=== PATIENT | male | born 1950 | race Caucasian/White ===

== ENCOUNTER 2017-02-07 15:56 | Emergency (ER) | payer OTHER, MEDICAID ==
--- NOTE | 2017-02-07 15:59 | EDPHY ---
H & P Time Seen by Provider: 02/07/17 15:58 HPI/ROS: CHIEF COMPLAINT: Tremulous, generalized weakness, history of possible alcohol consumption. HISTORY OF PRESENT ILLNESS: The patient is brought to the emergency department by his children with a several hour history of tremulous movement, generalized weakness and bizarre behavior. Children reports me they are suspicious about occult alcohol ingestion. Children visiting from out of state. The patient denies any complaints of acute pain. He denies fever. He complains of generalized malaise. The patient does report alcohol consumption but is unable to quantify how much. The patient does have a history of hypertension. He has no history of recent trauma. The patient denies focal numbness or weakness. He has no complaints of headache. REVIEW OF SYSTEMS: A comprehensive 10 point review of systems is otherwise negative aside from elements mentioned in the history of present illness. Source: Patient Exam Limitations: No limitations - Medical/Surgical History PMH: Past medical history: Hypertension - Family History Significant Family History: No pertinent family hx - Physical Exam Exam: General Appearance: Alert, appears intoxicated, no acute distress, mildly tremulous Eyes: Pupils equal and round no pallor or injection ENT, Mouth: Mucous membranes moist Respiratory: There are no retractions, lungs are clear to auscultation Cardiovascular: Regular rate and rhythm Gastrointestinal: Abdomen is soft and nontender, no masses, bowel sounds normal Neurological: A&O, normal motor function, normal sensory exam, normal cranial nerves Skin: Warm and dry, no rashes Musculoskeletal: Neck is supple nontender Extremities: symmetrical, full range of motion Constitutional: Initial Vital Signs Temperature (C) 37.3 C 02/07/17 16:04 Heart Rate 100 02/07/17 16:04 Respiratory Rate 24 H 02/07/17 16:04 Blood Pressure 162/94 H 02/07/17 16:04 O2 Sat (%) 99 02/07/17 16:04 O2 Delivery Mode Room Air Allergies/Adverse Reactions: No Known Allergies Allergy (Unverified 02/07/17 16:03) Home Medications: Medication Instructions Recorded 2 Htn Meds 02/07/17 Gabapentin 02/07/17 Medical Decision Making - Diagnostics EKG Interpretation: EKG: Complete interpretation has been separately recorded in the [employer] archive. Summary impression: Sinus rhythm, rate 85 ED Course/Re-evaluation: The patient presents to the ED with shakiness. The patient reports that he had been drinking quite a bit of water earlier today. The patient may have had some symptoms of mild alcohol withdrawal. The patient arrived and was noted to be hemodynamically stable. The patient's EKG demonstrates no evidence of an arrhythmia. The patient did have mild QT prolongation. The patient was noted to have a low sodium of 124. I was able to review his medications from [place] which include metoprolol, lisinopril, hydrochlorothiazide and lovastatin. The patient received 1 L of normal saline in the ED. The patient was then water restricted. The patient underwent serial examinations by myself over a 2 hour period. Serum sodium was recheck to be i-STAT following 1 L of normal saline and found to be 131. The patient states that his symptoms are feeling much better. I do believe the patient was having symptoms of alcohol withdrawal and potentially transient symptomatic hyponatremia. At this point time the patient is comfortable going home. He understands to limit his free water intake. The patient will return to the ED for any chest pain, shortness of breath, difficulty breathing or other concerns. Differential Diagnosis: Differential diagnosis considered includes hyponatremia, hypokalemia, dehydration, alcohol withdrawal, metabolic abnormality - Data Points Laboratory Results: Laboratory Results 02/07/17 16:05 02/07/17 16:05 02/07/17 02/07/17 02/07/17 17:20 16:05 16:05 WBC RBC Hgb Hct MCV MCH MCHC RDW Plt Count MPV Neut % (Auto) Lymph % (Auto) Elbert % (Auto) Eos % (Auto) Baso % (Auto) Nucleat RBC Rel Count Absolute Neuts (auto) Absolute Lymphs (auto) Absolute Monos (auto) Absolute Eos (auto) Absolute Basos (auto) Absolute Nucleated RBC Immature Gran % Immature Gran # Sodium 124 mEq/L L mEq/L (134-144) Potassium 3.5 mEq/L mEq/L (3.5-5.2) Chloride 90 mEq/L L mEq/L (97-110) Carbon Dioxide 17 mEq/l L mEq/l (22-31) Anion Gap 17 mEq/L H mEq/L (8-16) BUN 8 mg/dL mg/dL (7-23) Creatinine 0.7 mg/dL mg/dL (0.7-1.3) Estimated GFR > 60 Glucose 95 mg/dL mg/dL (70-100) Serum Osmolality 273 mosmo/kg L mosmo/kg (280-297) Calcium 9.9 mg/dL mg/dL (8.5-10.4) Urine Color YELLOW Urine Appearance CLEAR Urine pH 7.0 (5.0-7.5) Ur Specific [place] 1.004 (1.002-1.030) Urine Protein NEGATIVE (NEGATIVE) Urine Ketones TRACE H (NEGATIVE) Urine Blood NEGATIVE (NEGATIVE) Urine Nitrate NEGATIVE (NEGATIVE) Urine Bilirubin NEGATIVE (NEGATIVE) Urine Urobilinogen NEGATIVE EU EU (0.2-1.0) Ur Leukocyte Esterase NEGATIVE (NEGATIVE) Urine RBC 1-3 /hpf /hpf (0-3) Urine WBC 1-3 /hpf /hpf (0-3) Ur Epithelial Cells NONE SEEN /lpf /lpf (NONE-1+) Urine Osmolality 193 mosmo/kg L mosmo/kg (300-900) Urine Glucose NEGATIVE (NEGATIVE) Ethyl Alcohol 29 mg/dL H mg/dL (0-10) 02/07/17 16:05 WBC 5.72 10^3/uL 10^3/uL (3.80-9.50) RBC 4.18 10^6/uL L 10^6/uL (4.40-6.38) Hgb 14.7 g/dL g/dL (13.7-17.5) Hct 39.4 % L % (40.0-51.0) MCV 94.3 fL fL (81.5-99.8) MCH 35.2 pg H pg (27.9-34.1) MCHC 37.3 g/dL H g/dL (32.4-36.7) RDW 12.0 % % (11.5-15.2) Plt Count 316 10^3/uL 10^3/uL (150-400) MPV 9.4 fL fL (8.7-11.7) Neut % (Auto) 57.6 % % (39.3-74.2) Lymph % (Auto) 32.9 % % (15.0-45.0) Elbert % (Auto) 8.2 % % (4.5-13.0) Eos % (Auto) 0.2 % L % (0.6-7.6) Baso % (Auto) 0.9 % % (0.3-1.7) Nucleat RBC Rel Count 0.0 % % (0.0-0.2) Absolute Neuts (auto) 3.30 10^3/uL 10^3/uL (1.70-6.50) Absolute Lymphs (auto) 1.88 10^3/uL 10^3/uL (1.00-3.00) Absolute Monos (auto) 0.47 10^3/uL 10^3/uL (0.30-0.80) Absolute Eos (auto) 0.01 10^3/uL L 10^3/uL (0.03-0.40) Absolute Basos (auto) 0.05 10^3/uL 10^3/uL (0.02-0.10) Absolute Nucleated RBC 0.00 10^3/uL 10^3/uL (0-0.01) Immature Gran % 0.2 % % (0.0-1.1) Immature Gran # 0.01 10^3/uL 10^3/uL (0.00-0.10) Sodium Potassium Chloride Carbon Dioxide Anion Gap BUN Creatinine Estimated GFR Glucose Serum Osmolality Calcium Urine Color Urine Appearance Urine pH Ur Specific [place] Urine Protein Urine Ketones Urine Blood Urine Nitrate Urine Bilirubin Urine Urobilinogen Ur Leukocyte Esterase Urine RBC Urine WBC Ur Epithelial Cells Urine Osmolality Urine Glucose Ethyl Alcohol Medications Given: Discontinued Medications Sodium Chloride (Ns) 1,000 mls @ 0 mls/hr IV EDNOW ONE; Wide Open PRN Reason: Protocol Stop: 02/07/17 16:05 Last Admin: 02/07/17 16:09 Dose: 1,000 mls Lorazepam (Ativan Injection) 1 mg IVP EDNOW ONE Stop: 02/07/17 16:21 Last Admin: 02/07/17 16:25 Dose: 1 mg Departure - Departure Disposition: Home, Routine, Self-Care Clinical Impression: Hyponatremia Condition: Good Instructions: Hyponatremia (ED) Additional Instructions: 1. Please be careful about consuming excess water as this can significantly affect your electrolytes. 2. Please follow up with your primary care provider as needed.
[2017-02-07] MEDS ORDERED: NS 1,000 ML IV ONE (16:04)
--- NOTE | 2017-02-07 16:17 | CPEKG ---
Heart Rate: 85 RR Interval: 706 P-R Interval: 204 QRSD Interval: 104 QT Interval: 424 QTC Interval: 505 P [place]: -7 QRS [place]: -20 T Wave [place]: 47 EKG Severity - ABNORMAL ECG - EKG Impression: SINUS RHYTHM EKG Impression: BORDERLINE LEFT AXIS DEVIATION EKG Impression: CONSIDER ANTEROSEPTAL INFARCT EKG Impression: PROLONGED QT INTERVAL Electronically Signed By: [place] 07-Feb-2017 16:18:46
[2017-02-07] MEDS ORDERED: LORazepam 2 MG/ML INJ IVP ONE (16:20)
[2017-02-07 16:22] LABS: % IMMATURE GRANULYOCYTES 0.2 % (0.0-1.1); ABSOLUTE IMMATURE GRANULOCYTES 0.01 10^3/uL (0.00-0.10); ADD DIFF? NO; ADD MORPH? NO; ADD SCAN? NO; ATYPICAL LYMPHOCYTE FLAG 0 (0-99); FRAGMENT RBC FLAG 20 (0-99); HEMATOCRIT 39.4 % (40.0-51.0); HEMOGLOBIN 14.7 g/dL (13.7-17.5); LEFT SHIFT FLG 0 (0-99); LIPEMIA HEMOLYSIS FLAG 90 (0-99); MEAN CELL HEMOGLOBIN 35.2 pg (27.9-34.1); MEAN CELL HEMOGLOBIN CONCENTR. 37.3 g/dL (32.4-36.7); MEAN CELL VOLUME 94.3 fL (81.5-99.8); MEAN PLATELET VOLUME 9.4 fL (8.7-11.7); PLATELET CLUMPS FLAG 10 (0-99); PLATELET COUNT 316 10^3/uL (150-400); RED BLOOD CELL COUNT 4.18 10^6/uL (4.40-6.38)
[2017-02-07 16:33] LABS: ANION GAP 17 mEq/L (8-16); CALCIUM 9.9 mg/dL (8.5-10.4); CARBON DIOXIDE 17 mEq/l (22-31); CHLORIDE 90 mEq/L (97-110); CREATININE 0.7 mg/dL (0.7-1.3); ETHANOL SERUM 29 mg/dL (0-10); GLOMERULAR FILTRATION RATE > 60; GLUCOSE 95 mg/dL (70-100); POTASSIUM 3.5 mEq/L (3.5-5.2); SODIUM 124 mEq/L (134-144)
[2017-02-07 16:54] VITALS: RESP 18
[2017-02-07 17:39] LABS: COLOR YELLOW; LEUKOCYTE ESTERASE,URINE NEGATIVE (NEGATIVE); NITRITE,URINE NEGATIVE (NEGATIVE)
[2017-02-07 18:11] VITALS: BP 146/94; PULSE 82; TEMP 98.4; O2SAT 96
== END 2017-02-07 18:09 | disposition home or self-care (01) ==
DX: E87.1 Hypo-osmolality and hyponatremia (principal); E86.9 Volume depletion, unspecified; I10 Essential (primary) hypertension
CPT/HCPCS: 93005; 96361; 96374; 99284; J2060; 82947-QW; G0480

== ENCOUNTER 2018-09-24 23:45 | Emergency (ER) | payer OTHER, MEDICAID ==
[2018-09-25] MEDS ORDERED: IBUPROFEN 600 MG TAB PO ONE (00:35)
[2018-09-25] MEDS ORDERED: OXYCODONE/APAP 5/325 TAB PO ONE (00:39)
--- NOTE | 2018-09-25 00:54 | EDPHY ---
H & P Stated Complaint: lower back pain since last night Time Seen by Provider: 09/25/18 00:06 HPI/ROS: Chief Complaint: Tailbone pain HPI: 68-year-old male with a history of unspecified neuropathy underwent bilateral toe amputations several weeks ago after sustaining wounds to both his feet. Patient has been wheelchair-bound at the insistence of his physicians since he went home. He has been having worsening pain on his coccyx he believes due to his sitting in the wheelchair. Pain became significantly worse last night. He attempted to see his primary care physician today without success. He has not been taking any medication for this. Pain is isolated to his tailbone. Is not radiating. Does not have a history of similar pain in the past. No abdominal pain. No nausea or vomiting. No fevers or chills. No skin rash. Pain does not radiate. Is worse when he sits down. Improves when he stands up and walks. ROS: 10 systems were reviewed and were negative except those elements noted in the HPI. PMH: Retinopathy status post bilateral toe amputations Social History: No smoking, no alcohol, no recreational drug use Family History: non-contributory Physical Exam: Gen: Awake, Alert, No Distress HEENT: Nose: no rhinorrhea Eyes: PERRLA, EOMI Mouth: Moist mucosa Neck: Supple, no JVD Chest: nontender, lungs clear to auscultation Heart: S1, S2 normal, no murmur Abd: Soft, non-tender, no guarding Back: no CVA tenderness, patient has tenderness isolated to his coccyx. There is no erythema. There is no swelling. There are no masses. There is no fluctuance or pointing. There is no perirectal swelling or deformity. Mild tenderness over his coccyx reproducing his complaint. There is no crepitus or instability Ext: no edema, non-tender Skin: no rash Neuro: CN II-XII intact, Sensation grossly intact, Strength 5/5 in bilateral upper and lower extremities - Personal History Current Tetanus/Diphtheria Vaccine: Yes - Medical/Surgical History Hx Asthma: No Hx Chronic Respiratory Disease: No Hx Diabetes: No Hx Cardiac Disease: Yes Hx Renal Disease: No Hx Cirrhosis: No Hx Alcoholism: No Hx HIV/AIDS: No Hx Splenectomy or Spleen Trauma: No Other PMH: HTN, neuropathy, toe amputation august 2018, hypothyroid, high cholesterol, - Social History Smoking Status: Former smoker Constitutional: Initial Vital Signs Temperature (C) 36.4 C 09/24/18 23:49 Heart Rate 104 H 09/24/18 23:49 Respiratory Rate 20 09/24/18 23:49 Blood Pressure 131/94 H 09/24/18 23:49 O2 Sat (%) 96 09/24/18 23:49 O2 Delivery Mode Room Air Allergies/Adverse Reactions: No Known Allergies Allergy (Verified 09/24/18 23:52) Home Medications: Medication Instructions Recorded 2 [facility] Meds 02/07/17 Medical Decision Making - Data Points Medications Given: Discontinued Medications Ibuprofen (Motrin) 600 mg PO EDNOW ONE Stop: 09/25/18 00:36 Last Admin: 09/25/18 00:50 Dose: 600 mg Oxycodone/Acetaminophen (Percocet 5/325) 1 tab PO EDNOW ONE Stop: 09/25/18 00:40 Last Admin: 09/25/18 00:51 Dose: 1 tab Departure - Departure Disposition: Home, Routine, Self-Care Clinical Impression: Coccyx pain Condition: Good Instructions: Back Pain (ED), Coccyx Injury (ED) Additional Instructions: Take ibuprofen, 600 mg every 8 hr. You may alternate with acetaminophen, 1000 mg every 8 hr. You may take hydrocodone with acetaminophen in place of the acetaminophen for severe pain. Follow up with primary care physician in 2-3 days for further evaluation. Referrals: NONE *PRIMARY CARE P,. [Primary Care Provider] - As per Instructions
[2018-09-25] MEDS ORDERED: HYDROCOD/APAP 5/325 PREPACK#6 BTL TAKEHOME ONE (01:10)
[2018-09-25 02:10] VITALS: BP 123/88
== END 2018-09-25 02:16 | disposition home or self-care (01) ==
DX: M53.3 Sacrococcygeal disorders, not elsewhere classified (principal); G62.9 Polyneuropathy, unspecified; I10 Essential (primary) hypertension; E78.5 Hyperlipidemia, unspecified; Z89.421 Acquired absence of other right toe(s); Z89.422 Acquired absence of other left toe(s); Z87.891 Personal history of nicotine dependence

== ENCOUNTER 2018-11-14 14:27 | Emergency (ER) | payer OTHER, MEDICAID ==
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
[2018-11-14 15:06] LABS: PLATELET COUNT 181 10^3/uL (150-400)
[2018-11-14] MEDS ORDERED: LORazepam 1 MG TAB PO ONE ×2 (15:47→21:29)
[2018-11-14] MEDS ORDERED: HYDROCODONE/APAP 5/325 TAB PO ONE (15:47)
[2018-11-14] MEDS ORDERED: TAMSULOSIN HCL 0.4 MG CAP PO ONE (17:50)
[2018-11-14] MEDS ORDERED: ACETAMINOPHEN 325 MG TAB PO ONE (21:30)
[2018-11-14] MEDS ORDERED: LOSARTAN POTASSIUM 50 MG TAB PO SCH (21:30)
[2018-11-14] MEDS ORDERED: METOPROLOL TARTRATE 25 MG TAB PO ONE (21:30)
[2018-11-14] MEDS ORDERED: LOSARTAN POTASSIUM 50 MG TAB PO ONE (22:00)
--- NOTE | 2018-11-14 22:46 | ASMTTLCEVL ---
TLC Evaluation - Basic Information Evaluation Start Date and 11/14/2018 06:00 PM Time Hospital Status Answers: M1 Hold 72-hr M1 Hold Start Date 11/14/2018 02:20 PM and Time Patient statement Notes: "I'm physically getting better, mentally I'm taking a lot longer. I lost my job. I lost my . I lost my house. I lost my toes. I lost my dog." Narrative Notes: The patient is a 74 y/o male, , single, unemployed, with no psychiatric history. He is currently living with his daughter temporarily. The patient arrived via EMS on an M1 hold placed by [facility] staff after patient reported suicidal ideation and increasing depression. Per 27-65 M1 hold, "Ct is suicidal w/ active plan to jump off colt. Almost attempted 2x this week. Has not eaten or slept in 2 days. Cannot contract/agree to safety." In the past year, the patient became unemployed, lost his home, , had several toes amputated, and his dog . The patient endorsed suicidal ideation most recently [place] the [place] and planned to drive or jump off a colt. He aborted and went to [place] to receive outpatient services; the clinician advised the patient to come to the ED. The clinician accompanied the patient to his car to retrieve his daughter's phone number. Per [facility], the patient stated "I'm sorry to do this to you" prior to getting into the vehicle and driving away. The patient was met at home by police and eventually agreed to come to the ED where he was placed on an 27-65 M1. The patient was read their rights @ . The patient was guarded and denied current suicidal ideation, intent, or plan. He is adamant that he be discharged to his daughter's home to care for her dog, as she is currently traveling on business. The patient's son, Esdras, is very concerned and had previously planned to come to [place] in 36 hours to determine whether the patient will be moving to [place] to live with his son's family. The patient emphasized the sense of purpose he would have helping raise his grandchildren. The patient reiterated that he had only hoped to "talk to someone; to feel energized" as he had recently done in a recent similiar encouter with [facility] at the [facility]. The patient reported his children as a barrier to suicide. Diagnosis History Notes: The patient denied any previous d/o and dx hx. Prior suicide attempts Notes: The patient denied any prior suicide attempts. Prior hospitalizations Notes: The patient denied any prior hospitalizations for [facility]. Treatment Responses Notes: There is not sufficient information to determine the patients treatment response. History of violence Notes: The patient denied any homicidal ideation or previous hx of violence. Therapist: None Psychiatrist: None Medications (name, dosage, route, freq uency) Notes: The patient denied psychiatric medications. Allergies/Reaction Notes: no known allergies Sleep Notes: The patient reported decreased sleep. Appetite Notes: The patients appetite is reported to be decreased. Medical/Surgical history Notes: The patient reported neuropathy. Substance use history (frequency, intensity, his tory, duration) Notes: The patient denied substance abuse; he demonstrated poor insight into etoh use. He reported drinking one pint of vodka daily for the past two weeks. Prior to two weeks ago, the patient reported drinking a "couple of cocktails, a couple of glasses of wine with dinner." Family composition Notes: The patient has a multiple children. He currently resides with his daughter in [place], [place]. The patient plans to move and live with his son in [place]. The patient has six siblings; one brother lives in [place]. Need for family Answers: Yes participation in patient's care Family psychiatric/substance abuse history Notes: The patient denied any family psychiatric/substance abuse hx. Developmental history Notes: The patient denied any developmental issues. The patient denied ADD or ADHD. The patient denied any TBIs, concussions, or LOC.The patient denied any physical abuse, emotional abuse, or sexual abuse. The patient endorsed having achieved normal developmental milestones. Abuse concerns Answers: None Marital status/children Notes: The patient is , , and has several adult children. Living situation Notes: He currently resides with his daughter in [place], [place]. Peer support/family strengths Notes: The patient endorsed having a supportive family group. Education level/history Notes: The patient reported having attended high school and some college, bachelors degree in sociology from . Work history Notes: The patient is unemployed. 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 Notes: no known affiliation Legal Notes: The patient denied any legal issues. Anabaptist/Spiritual Notes: The patient reported none that would interfere with treatment. Leisure Notes: The patient reported enjoying skiing, climbing, and running. Collateral Notes: The collateral data was obtained from current and previous [facility] ed records/staff, 27-65 M1, [facility], and family members: Esdras. Patient's strengths Answers: Good Parent (Please select at least TWO strengths): Supportive Family TLC Evaluation - Mental Status Exam Appearance: Answers: Appropriate Clean Unkempt Eye Contact: Answers: Intermittent Mood: Answers: Irritable Labile Affect: Answers: Appropriate Anxious Apprehensive Distracted Guarded Irritable Labile Sad Behavior: Answers: Appropriate Cooperative Anxious Fearful Guarded Resistive to Care Talkative Speech: Answers: Relevant Logical Clear Coherent Soft Thought Process: Answers: Organized Oriented Goal Oriented Insight: Answers: Poor Judgement: Answers: Poor Manic Signs/Symptoms Answers: Impulsivity Irritability Depression Answers: Diminished Interest Signs/Symptoms: Diminished Pleasure Sad Mood Anxiety Signs/Symptoms Answers: Generalized Anxiety Hallucinations: Answers: None Current Stage of Change Answers: Contemplation Pt reported to have Answers: Yes suicidal/self-injuring ideation/behavior? Pt reported to be making Answers: Yes suicidal/self-injuring threats? Pt reported to have Answers: No aggression/assault ideation/behavior? Pt reported to be making Answers: No aggression/assault threats? Pt exhibits inability to Answers: No care for self/grave disability? Ideation/behavior is Answers: No chronic? Patient has a specific Answers: Yes plan? Pt has access to means to Answers: Yes execute the plan? Ideation involves Answers: Yes serious/lethal intent? Ideation has Answers: No delusional/hallucinatory content? History of Answers: Yes suicidal/self-injuring ideation, behavior, or threats? History of Answers: No aggressive/assaultive ideation, behavior, or threats? History of serious Answers: No physical harm to self/others while in treatment setting? TLC Evaluation - Suicide/Homicide Risk Suicide Risk Factors: Answers: < 20 or > 40 Years of Age Alcohol/Heavy Drug Use Anhedonia Anxiety/Panic, Severe Financial Difficulties Impulsivity Inadequate Social Support Intoxication Single Unstable Living Situation Other Notes: loss of pet Homicide/violence risk Answers: Heavy Alcohol Use factors: Current Suicidal Answers: No Ideation? Current Suicidal Ideation Answers: Yes in the Past 48 Hours? Current Suicidal Ideation Answers: Yes in the Past Month? Current Suicidal Answers: Yes Ideation, Worst Ever? Suicide Internal Answers: Absence of Psychosis Protective Factors: Eric with Stress Anabaptist Beliefs Suicide External Answers: Positive Therapeutic Protective Factors: Relationships Responsibility to Pets Responsibility to Children Ranking of patient's Answers: Severe suicidal risk: Ranking of patient's Answers: Low homicidal risk: TLC Evaluation - Wrap-up BDI Total Score: N/A BDI Question #2 Score: N/A BDI Question #9 Score: N/A BSS Total Score: N/A AXIS I Diagnosis (include DSM-V and ICD-10 codes), must also be entered in [facility], which is the source of truth. Notes: Unspecified Depressive Disorder 311 (F32.9) Alcohol Use Disorder, severe 303.90 (F10.20) Evaluation End Date and 11/14/2018 10:00 PM Time (HH:MM): Date Signed: 11/14/2018 10:45 PM Electronically Signed By:Yesenia Cardenas
--- NOTE | 2018-11-14 23:56 | ASMTTCLDSP ---
TLC Discharge Disposition Disposition: Answers: Transfer Discharge Concerns/Recommendations: Notes: In consultation with [facility] ED physician, Doc Ruggiero MD and [facility] on-call psychiatrist Sav Zeng MD, both concurred that pt appears to meet 27-65 criteria requiring psychiatric hospitalization as pt appears to be at risk of harm to self due to a mental illness condition. Pt was read the Patient Rights and Responsibilities Statement on 11/14/2018 22:30 pm original placed on chart, and was given photocopy of Rights. Pt was given the 3N prohibited belongings list while in the ED. Was patient given the Answers: Not applicable Inpatient Behavioral Health Prohibited Belongings List while in the ED? Type of Hold: Answers: M1/72-hour Hold Hold initiated by: Answers: ED Physician For Transfers, Accepting [facility] Facility: For Transfers, Accepting Dr. Chen Psychiatrist: For Transfers, Reason [facility] Patient is Being Transferred: Date Signed: 11/14/2018 11:55 PM Electronically Signed By:Yesenia Cardenas
[2018-11-15 01:06] VITALS: BP 138/84
== END 2018-11-15 01:01 ==
DX: R45.851 Suicidal ideations (principal); I10 Essential (primary) hypertension; E03.9 Hypothyroidism, unspecified
CPT/HCPCS: 80305; G0480